=== PATIENT | male | born 1965 | race Caucasian/White ===

== ENCOUNTER → 2018-11-22 | Day surgery (SDC) | payer OTHER ==
[2018-11-21 11:17] LABS: BASOPHILS # (AUTO) 0.1 (0.0-0.1); BASOPHILS % 0.7 % (0.0-1.0); EOSINOPHILS # (AUTO) 0.1 (0.0-0.4); EOSINOPHILS % 1.6 % (0.0-6.0); HEMATOCRIT 42.7 % (38.2-49.6); HEMOGLOBIN 14.5 g/dL (14.0-18.0); LYMPHOCYTES # (AUTO) 1.6 (1.0-3.2); LYMPHOCYTES % 22.8 % (18.0-39.1); MEAN CORPUSCULAR HEMOGLOBIN 30.1 pg (28-32); MEAN CORPUSCULAR VOLUME 88.6 fL (81-99); MONOCYTES # (AUTO) 0.5 (0.2-0.8); MONOCYTES % 7.2 % (4.4-11.3); NEUTROPHILS # (AUTO) 4.7 (2.1-6.9); NEUTROPHILS % 67.6 % (38.7-80.0); PLATELET COUNT 349 x10e3/uL (140-360); RED BLOOD COUNT 4.82 x10e6/uL (4.3-5.7); RED CELL DISTRIBUTION WIDTH 12.1 % (11.7-14.4)
[2018-11-21 11:23] LABS: INR 0.93; PROTHROMBIN TIME 13.3 seconds (11.9-14.5)
[2018-11-21 11:32] LABS: ALBUMIN 3.7 g/dL (3.5-5.0); ALBUMIN/GLOBULIN RATIO 1.1 (0.8-2.0); ANION GAP 14.4 mmol/L (8-16); CALCIUM 9.8 mg/dL (8.4-10.2); CREATININE, SERUM 1.28 mg/dL (0.72-1.25); POTASSIUM 4.4 mmol/L (3.5-5.1)
[2018-11-22] VITALS (18 sets, daily range): BP systolic 98–175; BP diastolic 51–88
[~2018-11-22] VITALS: Ht 177.8 cm; Wt 95.3 kg
[~2018-11-22] MED LIST: ATORVASTATIN CA20 MG PO; FENTANYL CITRATE/PF 100MCG/2 ML INJ ONE; FERROUS SULFAT325 MG PO; HEPARIN SOD (PORCINE) 1000 UNIT/ML 30ML ONE; HEPARIN SOD/SOD CHLORIDE 2,000 ML ONE; IOPAMIDOL 370 MG/ML 200 ML INFUS..BTL INJ ONE; LIDOCAINE HCL 1% LOCAL INJ 20 ML VIAL ONE; MIDAZOLAM HCL 2 MG/2 ML VIAL ONE; NEXIUM20 MG PO; NITROGLYCERIN/D5W 200 MCG/ML 250 ML ONE; SODIUM CHLORIDE 0.9% 1000ML 1,000 ML ONE; VERAPAMIL HCL 2.5 MG/ML 2 ML VIAL ONE
--- OUTSIDE RECORDS SUMMARY | 2018-11-22 06:49 | XMS REPORT | Clinical Summary ---
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 Active multivitamin,[id number] Take 1 tablet 0 A-min (UNI-THERA M) by mouth 27-0.4 mg tablet daily. Active Problems Problem Noted Date Thrombosed external hemorrhoids 07/20/2017 Incomplete rectal prolapse 06/29/2017 Internal and external bleeding hemorrhoids 06/29/2017 Family History Medical History Relation Name Comments Cancer Father No Known Problems Mother Relation Name Status Comments Father Mother Social History Date Tobacco Use Types Packs/Day Years Used Never Smoker Smokeless Tobacco: Never Used Tobacco Cessation: Counseling Given: No Alcohol Use Drinks/Week oz/Week Comments Yes SOCIALLY Sex Assigned at Date Recorded Not on file Industry Job Start Date Occupation Not on file Not on file Not on file Travel End Travel History Travel Start No recent travel history available. Last Filed Vital Signs Not on file Plan of Treatment Health Maintenance Due Date Last Done Comments COLON CANCER SCREENING 2015 SHINGLES VACCINES (1 of 2015 2) INFLUENZA VACCINE 05/16/2018 Results Not on fileafter 11/21/2017 Insurance Payer Benefit Subscriber ID Type Phone Address Plan / Group AETNA AETNA xxxxxxxxxx HMO HMO,POS,EP O, [employer] (Nada) [place] [address] Advance Directives Patient has advance care planning documents on file. For more information, phil e contact: Brian Rider [id number] [place] [address]
--- NOTE | 2018-11-22 09:00 | NUR ---
0900am received pt in [facility] [place] [facility], [facility] Dr Serina cooley and no fix via Rt Tr band approach.Received report from Jad TOTH. Rt Radial pulse stong no bleeding or bruising. Titration Scheduled for 1000am. Back to bdseline orientation PEERLA Resp shallow and regular denies Cp or Sob. Iv infusing at 100cchr left hand iv site w/o s/s infiltration. 800cc NS in bag. Abd soft and non tender denies necessity to defecate or urinate. Bilateral femerol pulses present Side rails up bed low position call light at bedside. Monitor remain NSR vs stable. Diet tray ordered Denies pain at TR site. States wont have ride till 3pm
--- NOTE | 2018-11-22 10:00 | NUR ---
1000am Titration started stable vs and site and EKg 12cc in balloon,positive pulse -3cc positive 9cc 1015am Titration -3cc positive 6cc ,continued stable vs and site and EKg stable,positive pulse. 1030am Titration -3cc positive 3cc ,continued stable vs and site and EKG stable,positive pulse. 1045am Titration -3cc positive 0 , dressing site applied. positive radial pulse.
--- NOTE | 2018-11-22 13:06 | Operative Report ---
DATE OF PROCEDURE: November 22, 2018 INDICATIONS: Coronary artery disease and abnormal stress test. PROCEDURES PERFORMED 1. Left heart catheterization. 2. Selective coronary angiography. 3. Left ventriculography. 4. Deployment of right wrist transradial band. COMPLICATIONS: None. RECOMMENDATIONS: Medical therapy. Access obtained in the right radial artery. A 5-Citizen Of [place] sheath was placed. Diagnostic coronary angiogram revealed mild coronary artery disease, 10% to 20% luminal stenosis. No critical stenosis or occlusions. LV ejection fraction 60%. LV end-diastolic pressure of 15. No gradient across the aortic valve on pullback. Right wrist guide and sheath removed. TR band applied. Patient discharged home same day. Job#: [id number] SERGIO
--- NOTE | 2018-11-22 14:00 | NUR ---
1400 discharged home TR band completion done Site w/o bleeding. good pulse tegederm and coban dressing. Discharge planning done and pt aware of importance of followup care and aware to make appt with DR Serina flores. Has copies of dc plans. Addendum: 11/22/18 at 2107 by Kinjal Novoa RN Iv was removed to hand site healthy occlusive dressing applied. Site healthy w/o infiltration. pt dc on in private car driving.
== END | disposition home or self-care (01) ==
LOC: CATH LAB 06:32
PROVIDERS: ATTEND Internal Medicine Interventional Cardiology
DX: I25.118 Atherosclerotic heart disease of native coronary artery with other forms of angina pectoris (principal); R94.39 Abnormal result of other cardiovascular function study; E78.00 Pure hypercholesterolemia, unspecified; D50.9 Iron deficiency anemia, unspecified; Z88.6 Allergy status to analgesic agent; Z88.0 Allergy status to penicillin; Z01.812 Encounter for preprocedural laboratory examination; Z68.30 Body mass index [BMI] 30.0-30.9, adult
CPT/HCPCS: 36415; 80053; 85025; 85610; 93458; C1887; J1644; J2001; J2250; J7030; Q9967